=== PATIENT | male | born 1950 | race Caucasian/White ===

== ENCOUNTER 2023-09-20 05:51 | Emergency (ER) | payer OTHER ==
[~2023-09-20] VITALS: Ht 175.3 cm; Wt 83.9 kg
[2023-09-20 11:09] VITALS: BP 139/82; PULSE 91; RESP 16; O2SAT 96
[2023-09-21] MEDS ORDERED: CEPH500T PO (13:07)
== END 2023-09-20 13:46 | disposition left against medical advice (07) ==
LOC: EDH 05:51
DX: L08.9 Local infection of the skin and subcutaneous tissue, unspecified (principal); Z53.21 Procedure and treatment not carried out due to patient leaving prior to being seen by health care provider

== ENCOUNTER 2023-09-21 11:05 | Emergency (ER) | payer OTHER ==
[~2023-09-21] VITALS: Ht 175.3 cm; Wt 83.9 kg
[2023-09-21 11:35] VITALS: BP 141/82; PULSE 70; RESP 16
[2023-09-21] MEDS ORDERED: CEPH500T PO (13:07)
[2023-09-21] MEDS ORDERED: CEPHALEXIN 500 MG CAPSULE PO ONE (13:30)
== END 2023-09-21 13:38 | disposition home or self-care (01) ==
LOC: EDH 11:05
DX: D22.9 Melanocytic nevi, unspecified (principal); L03.90 Cellulitis, unspecified